=== PATIENT | male | born 1995 | race Caucasian/White ===

== ENCOUNTER → 2022-12-14 | Outpatient (CLI) | payer BC ==
--- NOTE | 2022-12-15 08:40 | US ---
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 Stopped taking medication 6 years ago GLAND SIZE: Right Lobe: 5.2 x 2.4 x 2.2 cm Overall Parenchyma: heterogenous Left Lobe: 5.1 x 2.9 x 1.9 cm Overall Parenchyma: heterogenous Isthmus Thickness: 0.6 cm Markedly heterogeneous thyroid gland parenchyma, but no distinct nodules visualized at this time. IMPRESSION: Mild thyromegaly with markedly heterogeneous glandular parenchyma. Findings can be seen with goiter o r diffuse thyroiditis and are in keeping with patient's reported Manju's. No discrete nodules.
== END | disposition home or self-care (01) ==
LOC: RADUSWWP 16:52
PROVIDERS: ATTEND Family Medicine
DX: E06.3 Autoimmune thyroiditis (principal); E01.0 Iodine-deficiency related diffuse (endemic) goiter
CPT/HCPCS: 76536